=== PATIENT | female | born 1960 | race Caucasian/White ===

== ENCOUNTER 2016-12-23 11:30 | Inpatient (IN) | payer OTHER ==
[~2016-12-23] VITALS: Ht 162.6 cm; Wt 97.9 kg
[2016-12-23 12:12] LABS: HEMATOCRIT 39.6 % (36.0-46.0); MCH 30.1 PG (29.0-34.0); MCHC 33.8 G/DL (30.0-36.0); MEAN PLAT.VOLUME 12.5 uM^3 (9.5-12.4); PLATELET COUNT 236 K/uL (156-360); RBC DIS.WIDTH-CV 12.9 % (11.8-14.6); RBC DIS.WIDTH-SD 41.2 % (39-53); RED BLOOD COUNT 4.45 M/uL (3.80-5.20); WHITE BLOOD COUNT 18.3 K/uL (4.1-10.2)
[2016-12-23 12:26] LABS: CHLORIDE 106 mEq/L (99-109); POTASSIUM 3.7 mEq/L (3.7-5.4); SODIUM 140 mEq/L (136-147)
[2016-12-23 12:28] LABS: GLUCOSE 110 mg/dL (70-99)
[2016-12-23 12:29] LABS: ANION GAP 9 MEQ/L (2-14)
[2016-12-23 12:30] LABS: TOTAL BILIRUBIN 0.6 mg/dL (0.0-1.0)
[2016-12-23 12:31] LABS: ALKALINE PHOSPHATASE 79 IU/L (3-129)
[2016-12-23 12:32] LABS: GFR ESTIMATE (CALCULATED) > 59 mL/min/
[2016-12-23 12:33] LABS: ADD MIUA? YES; BILIRUBIN NEGATIVE; BLOOD NEGATIVE; COLOR STRAW ((YELLOW)); GLUCOSE (STRIP) NEGATIVE; KETONES NEGATIVE; LEUKOCYTES SMALL; NITRITE NEGATIVE; PROTEIN (STRIP) NEGATIVE; SPECIFIC GRAVITY 1.008 (1.000-1.030); UROBILINOGEN 0.2 MG/DL (0.2-1.0)
[2016-12-23 12:33] LABS: UREA NITROGEN (BUN) 14 mg/dL (9-23)
[2016-12-23 12:47] LABS: BACTERIA NONE SEEN /HPF; EPITHELIAL CELLS RARE /HPF; MUCUS NONE SEEN /LPF; RED BLOOD CELLS 0-5 /HPF (0-5); UCUL ADDED? NO
[2016-12-23] MEDS ORDERED: DIOVAN HCT 11 TABLE1 PO (13:01)
[2016-12-23] MEDS ORDERED: CLONIDINE HCL0.1 MG PO (13:01)
[2016-12-23] MEDS ORDERED: FENOFIBRATE145 M1 PO (13:02)
[2016-12-23] MEDS ORDERED: TRAMADOL HCL50 MG PO (13:02)
[2016-12-23] MEDS ORDERED: CLARITIN10 M3 PO (13:02)
[2016-12-23] MEDS ORDERED: LEVO-T112 MCG PO (13:03)
[2016-12-23] MEDS ORDERED: RANITIDINE HCL300 MG PO (13:03)
[2016-12-23] MEDS ORDERED: DICYCLOMINE HCL10 MG PO (13:03)
[2016-12-23] MEDS ORDERED: PRILOSEC10 MG PO (13:04)
[2016-12-23 13:40] LABS: DIRECT BILIRUBIN 0.3 mg/dL (0.0-0.3); LIPASE 40 U/L (1.0-51.0)
[2016-12-23] MEDS ORDERED: ECOTRIN325 MG PO (17:18)
[2016-12-23] MEDS ORDERED: FLONASE16 G1 BOTH NARES (17:18)
[2016-12-23] MEDS ORDERED: ALEVE220 MG PO (17:18)
[2016-12-23] MEDS ORDERED: CALCIUM 600 +1 EAC2 PO (17:19)
[2016-12-23] MEDS ORDERED: ASCORBIC ACID500 M3 PO (17:19)
[2016-12-23] MEDS ORDERED: ODOR FREE GARL100 MG PO (17:20)
[2016-12-23] MEDS ORDERED: DAILY VITE1 EAC1 PO (17:20)
[2016-12-23] MEDS ORDERED: FIBER THERAPY0.52 GM PO (17:21)
[2016-12-23] MEDS ORDERED: ICY HOT CREAM35.4 G1 TP (17:21)
[2016-12-23] MEDS ORDERED: TRILIPIX45 MG PO (17:22)
[2016-12-23] MEDS ORDERED: SLO-NIACIN250 MG PO (17:22)
[2016-12-23] MEDS ORDERED: VOLTAREN 1% GE100 GM TP (17:23)
[2016-12-23] MEDS ORDERED: NIZORAL SHAMPO120 ML TP (17:23)
[2016-12-23] MEDS ORDERED: MELATIN3 MG PO (17:24)
[2016-12-23] MEDS ORDERED: NASAL DECONGEST10 MG PO (17:24)
[2016-12-23] MEDS ORDERED: TYLENOL PM1 CAPLET PO (17:26)
[2016-12-23] MEDS ORDERED: PRILOSEC20 MG PO (17:27)
[2016-12-23 20:44] VITALS: BP 139/81
[2016-12-24 07:03] LABS: ALKALINE PHOSPHATASE 60 IU/L (3-129); ANION GAP 9 MEQ/L (2-14); CHLORIDE 106 MEQ/L (99-109); GFR ESTIMATE (CALCULATED) > 59 mL/min/; GLUCOSE 86 mg/dL (70-99); POTASSIUM 3.7 MEQ/L (3.7-5.4); SAMPLE HEMOLYSIS CHECK 0; SAMPLE ICTERIC CHECK 0; SAMPLE LIPEMIA CHECK 0; SODIUM 142 MEQ/L (136-147); TOTAL BILIRUBIN 0.5 MG/DL (0.0-1.0); UREA NITROGEN (BUN) 13 mg/dL (9-23)
[2016-12-24 07:21] LABS: AMYLASE 28 IU/L (1-118); LIPASE 27 U/L (1.0-51.0)
[2016-12-24 08:33] VITALS: BP 124/65
[2016-12-24 16:00] VITALS: BP 118/62
[2016-12-24 23:04] VITALS: BP 141/68
[2016-12-25 07:30] LABS: ALKALINE PHOSPHATASE 58 IU/L (3-129); ANION GAP 8 MEQ/L (2-14); CHLORIDE 107 MEQ/L (99-109); GFR ESTIMATE (CALCULATED) > 59 mL/min/; POTASSIUM 3.8 MEQ/L (3.7-5.4); SAMPLE HEMOLYSIS CHECK 0; SAMPLE ICTERIC CHECK 0; SAMPLE LIPEMIA CHECK 0; SODIUM 142 MEQ/L (136-147); TOTAL BILIRUBIN 0.4 MG/DL (0.0-1.0); UREA NITROGEN (BUN) 8 mg/dL (9-23)
[2016-12-25 07:31] LABS: GLUCOSE 120 mg/dL (70-99)
[2016-12-25 07:35] VITALS: BP 129/59
[2016-12-25] MEDS ORDERED: LOSARTAN POTAS100 MG PO (08:05)
[2016-12-25 08:51] LABS: EOSINOPHIL (%) 4.5 % (0-5); EOSINOPHIL COUNT 0.4 K/uL (0-0.3); HEMATOCRIT 34.1 % (36.0-46.0); IMMATURE GRANULOCYTE (%) 0.1 % (0.0-0.7); IMMATURE GRANULOCYTE COUNT 0.1 K/uL; LYMPHOCYTE COUNT 2.6 K/uL (1.0-2.8); MCH 29.8 PG (29.0-34.0); MCHC 32.6 G/DL (30.0-36.0); MCV 91.4 FL (83-99); MONOCYTE (%) 11.2 % (3-12); MONOCYTE COUNT 0.9 K/uL (0-0.8); NEUTROPHIL (%) 50.9 % (45-76); RBC DIS.WIDTH-CV 12.7 % (11.8-14.6); RBC DIS.WIDTH-SD 41.2 % (39-53); RED BLOOD COUNT 3.73 M/uL (3.80-5.20)
[2016-12-25 09:08] LABS: WHITE BLOOD COUNT 7.8 K/uL (4.1-10.2)
[2016-12-25 10:18] LABS: MEAN PLAT.VOLUME 13.3 uM^3 (9.5-12.4); PLAT.SUFFICIENCY ADEQUATE; PLATELET COUNT 186 K/uL (156-360); USER ID CCL
[2016-12-25] MEDS ORDERED: ROXICODONE5 MG PO (16:33)
[2016-12-25] MEDS ORDERED: ZOFRAN4 MG PO (16:33)
[2016-12-25 17:28] VITALS: BP 117/62
== END 2016-12-25 18:10 | disposition home or self-care (01) | DRG 440 ==
LOC: EME 11:30 → EDOF 16:33 → 5EAST 16:33
PROVIDERS: Hospitalist
DX: K85.90 Acute pancreatitis without necrosis or infection, unspecified (principal); I10 Essential (primary) hypertension; E03.9 Hypothyroidism, unspecified; E78.5 Hyperlipidemia, unspecified; G47.33 Obstructive sleep apnea (adult) (pediatric); Z87.891 Personal history of nicotine dependence; Z88.2 Allergy status to sulfonamides; Z79.82 Long term (current) use of aspirin
CPT/HCPCS: 71020; 74177; 76705; 80053; 81003; 82150; 82248; 83690; 85025; 85027; 87086; 94010; 94799; 99202; 99281; 99285; C9113; J1885; J2270; J2405; J3010; J7030; J7040; S0028